=== PATIENT | male | born 1990 | race Caucasian/White ===

== ENCOUNTER 2019-01-13 17:22 | Emergency (ER) | payer BC ==
[~2019-01-13] VITALS: Ht 195.6 cm; Wt 150.0 kg
[2019-01-13 17:23] VITALS: Ht 195.6 cm; Wt 150.0 kg
[2019-01-13 17:48] LABS: APPEARANCE CLEAR (CLEAR); BILIRUBIN NEGATIVE (NEGATIVE); COLOR YELLOW (YELLOW); GLUCOSE NEGATIVE (NEGATIVE); KETONE NEGATIVE (NEGATIVE); NITRITE NEGATIVE (NEGATIVE); PROTEIN NEGATIVE (NEGATIVE); SPECIFIC GRAVITY 1.025 (1.005-1.020); UROBILINOGEN NORMAL (NORMAL)
[2019-01-13 17:49] LABS: BACTERIA FEW /hpf (NONE SEEN); MUCUS <1+ /lpf (NONE SEEN); RED CELLS - URINE 0-5 /hpf (0-5)
[2019-01-13 17:56] LABS: BASOPHILS 0.2 % (0-2); EOSINOPHILS 4.8 % (0-7); HEMATOCRIT 44.5 % (42.0-54.0); IMMATURE GRANULOCYTES 0.4 % (0-5); LYMPHOCYTES 31.4 % (15-50); MCH 26.3 pg (26.0-34.0); MCHC 33.7 g/dL (31.0-37.0); MCV 78.1 fL (80.0-100.0); MEAN PLATELET VOLUME 10.8 fL (7.4-10.4); NEUTROPHILS 55.2 % (40-80); PLATELET COUNT 167 10x3/uL (130-400); RDW 13.8 % (11.5-14.5); WBC 8.3 10x3/uL (4.8-10.8)
[2019-01-13 18:15] LABS: ALKALINE PHOSPHATASE 86 U/L (46-116); ALT (SGPT) 24 U/L (10-68); BILIRUBIN - TOTAL 0.25 mg/dL (0.2-1.3); CALC OSMOLALITY 279 mosm/kg (275-300); CALCIUM 8.8 mg/dL (8.5-10.1); CARBON DIOXIDE 29.2 mmol/L (21.0-32.0); CHLORIDE - SERUM 103 mmol/L (98-107); CREATININE - SERUM 0.9 mg/dL (0.6-1.3); GLUCOSE 89 mg/dL (74-106); POTASSIUM - SERUM 4.2 mmol/L (3.5-5.1); PROTEIN - SERUM 8.2 g/dL (6.4-8.2); SODIUM 141 mmol/L (136-145); UREA NITROGEN 12 mg/dL (7-18); eGFR NON AFRICAN AMERICAN > 90 mL/min (90-120)
[2019-01-13 18:18] LABS: AMYLASE - SERUM 54 U/L (25-115); LIPASE 106 U/L (73-393); TROPONIN-I < 0.017 ng/mL (0.000-0.060)
[2019-01-13 20:49] VITALS: BP 153/92
== END 2019-01-13 20:49 | disposition home or self-care (01) ==
LOC: D.ER 17:22
PROVIDERS: Family Medicine
DX: R10.31 Right lower quadrant pain (principal); R11.2 Nausea with vomiting, unspecified

== ENCOUNTER 2019-05-17 07:36 | Observation (INO) | payer SELFPAY ==
[~2019-05-17] VITALS: Ht 195.6 cm; Wt 159.1 kg
[2019-05-17 07:53] LABS: HEMATOCRIT 48.1 % (42.0-54.0); HEMOGLOBIN 16.2 g/dL (13.5-17.5); LYMPHOCYTES 27.3 % (15-50); MCH 26.9 pg (26.0-34.0); MCHC 33.7 g/dL (31.0-37.0); MCV 79.9 fL (80.0-100.0); MEAN PLATELET VOLUME 11.5 fL (7.4-10.4); PLATELET COUNT 168 10x3/uL (130-400); RBC 6.02 10x6/uL (4.20-6.10); RDW 13.6 % (11.5-14.5); WBC 7.5 10x3/uL (4.8-10.8)
[2019-05-17 08:00] VITALS: BP 129/74
[2019-05-17 08:02] LABS: CALC OSMOLALITY 274 mosm/kg (275-300); CALCIUM 9.5 mg/dL (8.5-10.1); CARBON DIOXIDE 20.9 mmol/L (21.0-32.0); CHLORIDE - SERUM 103 mmol/L (98-107); CREATININE - SERUM 1.1 mg/dL (0.6-1.3); GLUCOSE 99 mg/dL (74-106); SODIUM 138 mmol/L (136-145); UREA NITROGEN 11 mg/dL (7-18); eGFR NON AFRICAN AMERICAN 85 mL/min (90-120)
--- NOTE | 2019-05-17 08:04 | NUR ---
PT STATES NO IMPROVEMENT FOLLOWING SL NITRO, EDP NOTIFIED.
[2019-05-17 08:06] LABS: APTT 30.9 SECONDS (22.8-39.4); INR 1.06 (0.85-1.17); PROTIME 13.3 SECONDS (11.6-15.0)
[2019-05-17 08:20] LABS: ALBUMIN 4.3 g/dL (3.4-5.0); ALKALINE PHOSPHATASE 83 U/L (46-116); ALT (SGPT) 39 U/L (10-68); BILIRUBIN - TOTAL 0.59 mg/dL (0.2-1.3); CKMB 1.1 U/L (0.0-3.6); CREATINE KINASE 170 UL (21-232); MAGNESIUM - SERUM 2.1 mg/dL (1.8-2.4); PROTEIN - SERUM 8.8 g/dL (6.4-8.2); TROPONIN-I < 0.017 ng/mL (0.000-0.060)
[2019-05-17 09:00] VITALS: BP 131/86
--- NOTE | 2019-05-17 09:07 | NUR ---
PT LYING IN BED, SEMI-FOWLERS WITH NO SIGNS OF DISTRESS. RESPIRATIONS EVEN AND UNLABORED ON RA. CALL LIGHT IN REACH, WILL CONTINUE TO MONITOR.
--- NOTE | 2019-05-17 10:26 | NUR ---
OFFERED PRN TYLENOL FOR PAIN, PT DECLINED. RATES PAIN 02/02.
--- NOTE | 2019-05-17 10:56 | NUR ---
RECEIVED FROM ER. ALERT ABLE TO VOICE NEEDS HAS OLD SCAR ON CHEST. SALINE LOCK IS INTACT IN RIGHT HAND ORIENT TO ROOM AND HOW TO USE CL. HE STATES HIS PAIN IS BETTER IT IS PRESSURE WITH ONLY A OCCASIONAL PAIN. RESP EVEN WITHOUT LABOR BBS ARE CLEAR.
--- NOTE | 2019-05-17 12:45 | NUR ---
PT WALKED TO DESK UPSET WANTING SOMETHING FOR PAIN. EXPLAINED TO PATIENT THAT HIS NURSE WAS IN AN EMERGENCY AND AFFERED TO BRING PATIENT SOMETNING FOR PAIN. PATIENT STATED WAS WALKING OUT OF HERE. i EXPLAINED TO PATIENT THAT HE WOULD BE RESPONSIBLE FOR BILL IF LEFT AGAINST MEDICAL ADVICE. PATIENT STATED HOSPITAL CAN " SHOVE THE BILL UP THEIR ASS". i OFFERED TO TAKE IV OUT AND PATIENT REMEVED IV PER SELF AND REFUSED TO COVER IV SITE WITH PATINET BLEEDING.
--- NOTE | 2019-05-17 12:50 | NUR ---
I WAS IN THE HALLWAY AND ASKED HIM WHAT HE WAS DOING AND HE STATED I AM GOING ANYWHERE BUT HERE BECAUSE THIS HOSPITAL IS [facility] AND HE WENT AND GOT ON ELEVATER AND LEFT
--- NOTE | 2019-05-17 13:00 | NUR ---
DR MARQUEZ AND SAE ARAGON ARE AWARE HE LEFT AMA AND HE REFUSED TO SIGN ANY PAPERS
[2019-05-17 13:47] VITALS: BP 138/90; Ht 195.6 cm; Wt 159.1 kg
--- NOTE | 2019-05-21 08:49 | EC ---
PATIENT:JERE MEJIA DATE OF SERVICE: 05/17/19 SEX: M MEDICAL RECORD: [id number] DATE OF : [birth year] LOCATION:D.M2 D.210 AGE OF PATIENT: 28 ADMISSION DATE: 05/17/19 REFERRING PHYSICIAN: INTERPRETING PHYSICIAN: CT GARCIA MD ECHOCARDIOGRAM REPORT ECHO CHARGES 4 ECHO COMPLETE Date: 05/17/19 CLINICAL DIAGNOSIS: CP H/O AORTA REPAIR/VALVE ABNORMALITY ECHOCARDIOGRAPHIC MEASUREMENTS (adult normal given) AC root (d.<3.7cm) 3.9 cm LV Septum d (<1.2 cm> 1.4 cm Valve Excursion 2.0 cm LV Septum (systole) 2.0 cm Left Atria (s.<4.0cm> 4.0 cm LVPW d(<1.2cm) 1.6 cm RV (d.<2.3cm) 4.1 cm LVPW (sytole) 2.0 cm LV diastole(<5.6CM) 5.9 cm MV E-F(>70mm/sec) cm LV systole 3.8 cm LVOT Diameter 2.3 cm MV exc.(>10mm) cm Est.ejection fraction (50-75%) % DOPPLER: LVIT cm/sec A 70.0 cm/sec E 83.0 cm/sec LA cm/sec RVSP 34.0 mmHg LVOT 110 cm/sec AOP1/2T m/s Asc. Ao 155 cm/sec RVOT 58.0 cm/sec RA cm/sec PA 100 cm/sec AV Gradient Peak 9.6 mmHg AV Mean 5.4 mmHg AV Area 3.6 cm MV Gradient Peak 3.7 mmHg MV Mean 1.8 mmHg MV Area cm COMMENTS: Occupational Health Physiotherapist: Lexie SOLISOE [employer] Utility Trailers: 3 Dr. Chavez TAPE# PACS Pericardial Effusion N DATE OF SERVICE: 05/17/2019 Adequate 2D, color flow, spectral Doppler, and M-Mode Mild LVH. LV internal dimension is normal. Wall motion is normal. EF is greater than or equal to 55%. Difficult to tell if the aortic valve is tricuspid. There is no evidence of stenosis by Doppler interrogation. Left atrium is normal at 4.0 cm. Mitral valve shows no prolapse. Trace MR. Right-sided chambers are grossly normal. Trace TR. ECHOCARDIOGRAM REPORT [id number] HUGHES TRANSINT:[id number] Voice Confirmation ID: [id number] DOCUMENT ID: [id number] CT GARCIA MD at 0849 CC: [id number] DICTATION DATE: 05/18/19 1014 BEEF SPLITTER: 05/18/19 1049 DIS IN 05/17/19 [facility] [address] [id number]
== END 2019-05-17 13:00 | disposition left against medical advice (07) ==
LOC: D.ER 07:36 → OBSVTIME 08:56 → D.M2 08:56
PROVIDERS: Family Medicine; ADMIT Family Medicine Adult Medicine; ATTEND Family Medicine Adult Medicine
DX: R07.9 Chest pain, unspecified (principal)